=== PATIENT | female | born 1990 | race Caucasian/White ===

== ENCOUNTER 2024-08-29 01:13 | Emergency (ER) | payer MEDICAID, SELFPAY ==
[2024-08-29 01:14] VITALS: BP 121/77; PULSE 76; RESP 20; TEMP 36.7; O2SAT 98; BMI 27.4
--- NOTE | 2024-08-29 02:32 | EDNOTE_ITS ---
ED Wound/Laceration-RME/HPI General Chief Complaint: Ankle/Foot Injury Stated Complaint: LEFT FOOT LACERATION Time Seen by Provider: 08/29/24 02:31 Arrival date/time: 08/29/24 01:13 34F with no significant PMH presents to ED with L bottom foot lac after she accidentally cut herself on a piece of broken tile in her bathroom. Patient very recently mopped the floor. Patient has had a tetanus shot in the past 5 years. Limitations: no limitations Related Data Home Medications ?Medication ?Instructions ?Recorded ?Confirmed ferrous sulfate 325 mg (65 mg 1 tab 1XD ANEMIA 2 02/02/22 iron) tablet (FeroSul) Previous Rx's ?Medication ?Instructions ?Recorded docusate sodium 100 mg capsule 100 mg PO BID #60 caps 02/02/22 (Colace) ibuprofen 800 mg tablet 800 mg PO Q6H PRN pain #120 tabs 02/02/22 lanolin 50 % topical ointment 1 applic topical TID PRN skin 02/02/22 irritation #15 tubes cephalexin 500 mg capsule 500 mg PO BID 5 days #10 cap s 08/29/24 Allergies Allergy/AdvReac Type Severity Reaction Status Date / Time No Known Allergies Allergy Verified 12/05/23 14:27 Review of Systems Review of Systems Systems Reviewed: All systems reviewed, normal except as documented Constitutional Constitutional: Reports system reviewed and no additional complaints, except as documented, Denies fever(s) and Denies headache(s) ENT Ears, Nose, Mouth, and Throat: Denies disequilibrium and Denies headache(s) Cardiovascular Cardiovascular: Reports system reviewed and no additional complaints, except as documented, Denies chest pain and Denies dyspnea Respiratory Respiratory: Reports system reviewed and no additional complaints, except as documented, Denies cough and Denies dyspnea Gastrointestinal Gastrointestinal: Reports system reviewed and no additional complaints, except as documented, Denies abdominal pain, Denies nausea and Denies vomiting Integumentary/Breasts Skin/Breast: Reports as per HPI and Reports skin pain Neurologic Neurologic: Reports system reviewed and no additional complaints, except as documented, Denies confusion, Denies disequilibrium and Denies headache(s) Psychiatric Psychiatric: Denies confusion Past Medical History Past Medical History NEUROLOGIC: Negative Neurological Disorders CARDIAC: Negative Cardiac Disorders or Congestive Heart Failure RESPIRATORY: Negative Chronic Obstructive Pulmonary Disease (COPD) or Asthma GASTROINTESTINAL: Negative Gastrointestinal Disorders, Hepatitis or Colorectal Cancer GENITOURINARY: Negative Genitourinary Disorders, Renal Disease or Prostate Cancer REPRODUCTIVE: Positive Previous Pregnancies (X9) and Syphilis (2020); Negative Breast Cancer or Testicular Cancer MUSCULOSKELETAL: Negative Musculoskeletal Disorders or Bone Cancer ENDOCRINE: Negative Endocrine Disorders, Diabetes Mellitus Type 1 or Diabetes Mellitus Type 2 HEMATOLOGIC: Positive Blood Disorders and Anemia; Negative Sickle Cell Disease OTHER HISTORY: Positive Hospitalization (CHILDBIRTH) and Chicken Pox (CHILDHOOD); Negative Autoimmune Disease, Down Syndrome, Developmental Delay, Shingles, Falls, Blood Transfusions, Blood Transfusion Reaction, Anesthesia Reactions, Organ Transplant, Chemotherapy, Radiation Therapy, Hyperbaric Therapy, MRSA, VRSA, Vancomycin-Resistant Enterococci, Human Immunodeficiency Virus (HIV), Measles, Mumps, Rubella (Armenian Measles), Pertussis, Clostridium Difficile, Cancer, Breast Cancer, Cervical Cancer, Colorectal Cancer, Lung Cancer, Ovarian Cancer, Prostate Cancer or Testicular Cancer Surgical History SURGICAL: Negative Cardiac Surgery, Endocrine Surgery, Thyroidectomy, Ear Surgery, Abdominal Surgery, Nephrectomy, Joint Replacement, Neurologic Surgery, Mastectomy, Lumpectomy, Hysterectomy, Tubal Ligation, Section or Organ Transplant Social History SMOKING STATUS: Never smoker SUBSTANCE USE: marijuana ED Exam General Limitations: Present no limitations General appearance: Present alert and in no apparent distress Head Head exam: Present atraumatic Eye Eye exam: Present normal appearance, PERRL and EOMI ENT ENT exam: Present normal exam, normal oropharynx and mucous membranes moist Neck Neck exam: Present normal inspection, full ROM and trachea midline Chest Chest inspection: Present normal inspection and symmetric chest wall rise Respiratory Respiratory exam: Present normal lung sounds bilaterally Cardiovascular Cardiovascular exam: Present regular rate, normal rhythm and normal heart sounds Abdominal Exam Abdominal exam: Present soft and normal bowel sounds Extremities Exam Extremities exam: Present full ROM Expanded Lower Extremity Exam Foot/toe exam: Present full ROM and laceration (partial skin avulsion on bottom L foot 3 cm in diameter) Back Exam Back exam: Present normal inspection and full ROM Neurological Exam Neurological exam: Present alert, oriented X3 and CN II-XII intact Psychiatric Psychiatric exam: Present normal affect and normal mood Skin Skin exam: Present warm, dry, intact and normal color Course Quality Measures none Orders Category Date Time Status Set Up Suture Tray STAT Care 08/29/24 02:31 Completed cephALEXin [Keflex] Med 08/29/24 02:31 Discontinued 500 mg PO X1 ONE Vital Signs Vital signs: Vital Signs Temperature 98.0 F 08/29/24 01:14 Pulse Rate 76 08/29/24 01:14 Respiratory Rate 20 08/29/24 01:14 Blood Pressure 121/77 08/29/24 01:14 Pulse Oximetry (%) 98 08/29/24 01:14 Oxygen Delivery Method Room Air 08/29/24 01:14 O2 at 98% on RA and WNLs Wound / Laceration MDM Narrative MDM Narrative:: 34F with no significant PMH presents to ED with L bottom foot lac after she accidentally cut herself on a piece of broken tile in her bathroom. Patient very recently mopped the floor. Patient has had a tetanus shot in the past 5 years. Physical exam reveals partial skin avulsion on bottom of L foot about 3 cm in diameter. No visualized FB or upon palpation. Patient is afebrile, alert, but anxious. Wound irrigated/cleaned both externally and in the flap (after numbing). Wound closed with 11 stitches. Procedure done by resident Dr. Alexandra with assistance f nikole this provider. Will give prophylactic ABX due to size of wound and bathroom floors being quite dirty in general. Counseled to have stitches removed in about 10-14 days. Patient data External records reviewed:: [facility] previous records Clinical information provided by:: patient Social determinants that could affect healthcare access:: none Patient has the following chronic illnesses:: none How is presenting disease/condition affected by chronic disease/condition?: no chronic disease Evaluation data The following diagnostics were reviewed and interpreted by me:: other (specify) (none) Lab and/or radiology exams considered but not ordered:: not ordered Interpretation Summary: n/a Medications / Prescriptions Medications or Prescriptions considered but not ordered:: ordered Medication administrations:: Medication Administration History Discontinued Medications Cephalexin HCl (Cephalexin 250 Mg Capsule) 500 mg PO X1 ONE Stop: 08/29/24 02:32 Last Admin: 08/29/24 04:00 Dose: 500 mg Documented By: RC above Consultations Consultation(s) initiated? (list below): No Diagnosis Wound Differential Diagnosis: laceration, abrasion and avulsion of skin Most likely diagnosis given after review of the tests above:: skin avulsion and laceration Admission Indicated Admission indicated?: not indicated Admission Request Was there a request for admission?: No Disposition Plan Disposition Plan: Discharge Discharge Attestation Discharge Attestation: The patient and all family members were given an opportunity to ask questions and understood the discharge instructions. Discharge instructions specifically effects, indications for sooner follow up or return to the emergency department, and the expected course of current diagnosis. Patient condition: Stable Discharge Plan Plan Patient Disposition: HOME (Self Care) Disposition Comment: Stable Prescriptions/Referrals Prescriptions/Med Rec: New cephalexin 500 mg capsule 500 mg PO BID 5 Days Qty: 10 0RF No Action ferrous sulfate [FeroSul] 325 mg (65 mg iron) tablet 1 tab 1XD ibuprofen 800 mg tablet 800 mg PO Q6H MDD 4 PRN (Reason: pain) Qty: 120 0RF docusate sodium [Colace] 100 mg capsule 100 mg PO BID Qty: 60 0RF lanolin 50 % ointment 1 applic topical TID PRN (Reason: skin irritation) Qty: 15 0RF Referrals: No Primary/Family,Physician [Primary Care Provider] - In 1 week Problem List Clinical Impression: Laceration, Avulsion of skin Patient/Caregiver Discharge Instructions Additional Instructions: Please follow-up with PCP within 24-48 hours and return immediately if symptoms worsen. Have stitches removed in about 10-14 days. Print Language: Romanian Stand Alone Forms: Patient Portal Info Letter DURGA/LUIS Supervising Physician ISAURA Supervising Physician: Dr. Boss
[2024-08-29] MEDS: cephALEXin 250 MG CAPSULE 500 MG PO (04:00)
--- NOTE | 2024-08-29 04:08 | PD.EDADDENDU ---
MD Attestation MD Attestation Procedures - ED Laceration Laceration 1: Site: foot (3x3 cm avulsion to the plantar aspect of the forefoot inferior to the first toe) Side (If applicable): left Size (cm): 3x3 cm Description: circular avulsion Depth: simple, single layer Local Anesthetic: lidocaine 1% Amount of anesthesia used (mL): 8 Pre-repair: irrigated extensively Skin layer closed with: nylon Size (cm): 4-0 Number of sutures: 11 Technique: simple, interrupted Procedure completed under the supervision of DURGA Alexandra PGY-2 Internal Medicine
== END 2024-08-29 04:07 | disposition home or self-care (01) ==
PROVIDERS: Emergency Provider Emergency Medicine
DX: S91.312A Laceration without foreign body, left foot, initial encounter (principal); W26.8XXA Contact with other sharp object(s), not elsewhere classified, initial encounter
CPT/HCPCS: 12002; 99283; A9270